=== PATIENT | female | born 1975 | race Caucasian/White ===

== ENCOUNTER 2024-05-19 07:20 | Day surgery (SDC) | payer BC ==
[2024-05-19] MEDS ORDERED: Propofol 200 MG/20 ML SDV ONE ×3 (07:36→08:30)
[2024-05-19] MEDS: Lactated Ringers 1,000 ML IV SCH (07:45)
[2024-05-19] MEDS ORDERED: Labetalol 100 MG/20 ML MDV ONE (08:28)
== END 2024-05-19 09:25 | disposition home or self-care (01) ==
LOC: JD.SDS 07:20
PROVIDERS: ATTEND Surgery
DX: Z12.11 Encounter for screening for malignant neoplasm of colon (principal); K63.5 Polyp of colon; K21.9 Gastro-esophageal reflux disease without esophagitis; F41.9 Anxiety disorder, unspecified; Z79.899 Other long term (current) drug therapy; Z91.048 Other nonmedicinal substance allergy status; Z88.8 Allergy status to other drugs, medicaments and biological substances
CPT/HCPCS: 45380; J1920; J2704; J7120; 00811